=== PATIENT | male | born 1965 | race Caucasian/White ===

== ENCOUNTER 2019-04-07 07:02 | Emergency (ER) | payer OTHER ==
[2019-04-07] MEDS ORDERED: Fluorescein Opthalmic Strip ONE (07:09)
== END 2019-04-07 07:39 | disposition home or self-care (01) ==
LOC: BURERS 07:02
DX: H16.133 Photokeratitis, bilateral (principal); J45.909 Unspecified asthma, uncomplicated; K21.9 Gastro-esophageal reflux disease without esophagitis; Z79.899 Other long term (current) drug therapy
CPT/HCPCS: 99283